=== PATIENT | male | born 1940 | race African-American/Black ===

== ENCOUNTER 2017-03-20 09:39 | Outpatient (CLI) | payer MEDICARE, BC ==
[2017-03-20 11:48] LABS: #Eosinphils 0.2 thou/uL (0.0-0.7); #Monocytes 0.6 thou/uL (0.11-0.59); #Neutrophils 3.3 thou/uL (1.40-6.50); %Basophils 0.5 % (0.0-1.0); %Eosinophils 3.7 % (0.0-10.0); %Lymphocytes 20.3 % (21.0-51.0); %Monocytes 10.7 % (0.0-10.0); Hematocrit 42.5 % (42.0-52.0); Mean Platelet Volume 8.1 fL (7.4-10.4); Red Blood Cell (RBC) Count 4.56 mill/uL (4.70-6.10); White Blood Cell (WBC) Count 5.1 thou/uL (4.8-10.8)
[2017-03-20 11:59] LABS: ALT (SGPT) 14 U/L (8-55); AST (SGOT) 15 U/L (5-34); Alkaline Phosphatase 62 U/L (40-150); Anion Gap 11 mmol/L (10-20); BUN (Urea Nitrogen) 18 mg/dL (8.4-25.7); Bilirubin, Direct 0.3 mg/dL (0.1-0.3); Bilirubin, Total 0.8 mg/dL (0.2-1.2); Calc. Creatinine Clearance 0 mL/min (70-130); Calcium 9.5 mg/dL (7.8-10.44); Carbon Dioxide 30 mmol/L (23-31); Chloride 106 mmol/L (98-107); Estimated GFR-MDRD 57; Globulin 2.8 g/dL (2.4-3.5); Protein, Total 6.9 g/dL (5.8-8.1)
--- NOTE | 2017-03-20 15:11 | EKG ---
Test Reason : Blood Pressure : / mmHG Vent. Rate : 053 BPM Atrial Rate : 053 BPM P-R Int : 180 ms QRS Dur : 096 ms QT Int : 454 ms P-R-T Axes : 058 069 050 degrees QTc Int : 426 ms Sinus bradycardia Moderate voltage criteria for LVH, may be normal variant Borderline ECG Confirmed by KG MARR ([id number]) on 03/20/2017 3:10:52 PM Referred By: RADHA Confirmed By:KG MARR
== END 2017-03-20 09:40 | disposition home or self-care (01) ==
LOC: LABBT 09:39
PROVIDERS: ATTEND Surgery
DX: Z01.818 Encounter for other preprocedural examination (principal); K80.20 Calculus of gallbladder without cholecystitis without obstruction
CPT/HCPCS: 80053; 80076; 85025; 93005; 93010

== ENCOUNTER 2017-03-22 09:05 | Day surgery (SDC) | payer MEDICARE, BC ==
[2017-03-20 10:10] VITALS: BMI 29.0
[2017-03-22] MEDS ORDERED: Sodium Chloride 0.9% 100 ML ONE (09:43)
[2017-03-22] MEDS ORDERED: Hydrocortisone Sod Succ/PF 100 mg/2 ml Vial ONE (10:06)
[2017-03-22] MEDS ORDERED: Fentanyl 100 MCG/2 ML VIAL ONE (10:32)
[2017-03-22] MEDS ORDERED: Propofol 200 MG/20 ML VIAL ONE (10:45)
[2017-03-22] MEDS ORDERED: Lidocaine 1% PF 5 ML VIAL ONE (10:45)
[2017-03-22] MEDS ORDERED: Metoclopramide HCl 10 MG/2 ML VIAL ONE (10:45)
[2017-03-22] MEDS ORDERED: Ketorolac Tromethamine 30 MG/ML VIAL ONE (10:45)
[2017-03-22] MEDS ORDERED: Dexamethasone 20 MG/5 ML VIAL ONE (10:45)
[2017-03-22] MEDS ORDERED: diphenhydrAMINE HCl 50 MG/ML 1 ML VIAL ONE (10:45)
[2017-03-22] MEDS ORDERED: Ondansetron HCl/PF 4 MG/2 ML Vial ONE (10:45)
[2017-03-22] MEDS ORDERED: Glycopyrrolate 0.2 MG/ML 5 ML SYRINGE ONE (10:45)
[2017-03-22] MEDS ORDERED: HYDROcodone/Acetaminophen 5/325 mg Tablet ONE (13:31)
--- NOTE | 2017-03-22 13:56 | OP ---
DATE OF PROCEDURE: 03/22/2017 PREOPERATIVE DIAGNOSIS: Symptomatic cholelithiasis. SURGEON: Shar Pelaez M.D. PROCEDURE PERFORMED: Laparoscopic cholecystectomy. INDICATIONS: This is a 76-year-old male who has been having episodic right upper quadrant pain radi ating to the back associated with nausea. Ultrasound showed cholelithiasis. FINDINGS: Small caliber cystic duct. PROCEDURE: After informed consent was obtained, the patient was taken to the operating room and giv en general endotracheal anesthesia. He was placed in the supine position. The abdomen prepped and draped in the usual fashion. Local anesthesia infiltrated subcutaneously and deep. A periumbilical incision was performed. The subcu divided sharply. Fascia grasped and two stay sutures of 0 Vicry l placed to either side of midline. Midline incised. Digital palpation revealed no local adhesions . A blunt 10/12 mm trocar inserted. Pneumoperitoneum was created to a pressure of 15 mmHg. A 0 d egree laparoscope inserted. Three 5 mm ports placed subcostally. The gallbladder grasped advanced superiorly peritoneum lysed to reveal the cystic duct and artery as well as the critical view. Thes e were triply ligated with Hemoclips and divided. The gallbladder was removed from its fossa utiliz ing electrocautery, removed from the abdomen through the umbilical port. Hemostasis was assured. T rocars and retractors were removed. The fascia closed with interrupted 0 Vicryl suture. Skin close d with interrupted 4-0 Rapide. Dermabond applied. The patient tolerated the procedure well and tra nsferred to recovery in good condition. Sponge and needle count verified correct x2.
== END 2017-03-22 14:10 | disposition home or self-care (01) ==
LOC: SDC 09:05
PROVIDERS: ATTEND Surgery
PROC: 0FT44ZZ Resection of Gallbladder, Percutaneous Endoscopic Approach (ICD-10-PCS; principal; 2017-03-22)
DX: K80.10 Calculus of gallbladder with chronic cholecystitis without obstruction (principal); M06.9 Rheumatoid arthritis, unspecified; M32.9 Systemic lupus erythematosus, unspecified; Z90.79 Acquired absence of other genital organ(s); N18.2 Chronic kidney disease, stage 2 (mild); I12.9 Hypertensive chronic kidney disease with stage 1 through stage 4 chronic kidney disease, or unspecified chronic kidney disease; E11.22 Type 2 diabetes mellitus with diabetic chronic kidney disease; Z79.84 Long term (current) use of oral hypoglycemic drugs; Z79.52 Long term (current) use of systemic steroids; Z79.899 Other long term (current) drug therapy; Z90.89 Acquired absence of other organs; Z98.890 Other specified postprocedural states; Z87.891 Personal history of nicotine dependence
CPT/HCPCS: 88304; J0131; J0694; J1100; J1200; J1720; J1885; J2001; J2405; J2704; J2765; J3010; J7050

== ENCOUNTER 2018-08-08 09:42 | Emergency (ER) | payer MEDICARE, BC ==
[2018-08-08 11:04] LABS: #Lymphocytes 0.8 thou/uL (1.20-3.40); #Monocytes 0.5 thou/uL (0.11-0.59); #Neutrophils 6.2 thou/uL (1.40-6.50); %Basophils 0.1 % (0.0-1.0); %Eosinophils 0.7 % (0.0-10.0); %Lymphocytes 10.7 % (21.0-51.0); %Monocytes 6.7 % (0.0-10.0); %Neutrophils 81.9 % (42.0-75.0); Hemoglobin 12.1 g/dL (14.0-18.0); Mean Corpuscular HGB CONC 33.2 g/dL (32.0-36.0); Mean Corpuscular Volume 90.5 fL (78.0-98.0); Mean Platelet Volume 8.4 fL (7.4-10.4); Platelet Count 177 thou/uL (130-400); RBC Distribution Width 13.2 % (11.5-14.5); Red Blood Cell (RBC) Count 4.03 mill/uL (4.70-6.10); White Blood Cell (WBC) Count 7.6 thou/uL (4.8-10.8)
[2018-08-08] MEDS ORDERED: Amlodipine 5 MG TAB ONE ×2 (11:21→12:04)
[2018-08-08 11:24] LABS: ALT (SGPT) 16 U/L (8-55); AST (SGOT) 18 U/L (5-34); Alkaline Phosphatase 56 U/L (40-150); Anion Gap 11 mmol/L (10-20); BUN (Urea Nitrogen) 20 mg/dL (8.4-25.7); Bilirubin, Total 0.9 mg/dL (0.2-1.2); Calc. Creatinine Clearance 0 mL/min (70-130); Calcium 9.7 mg/dL (7.8-10.44); Carbon Dioxide 28 mmol/L (23-31); Chloride 108 mmol/L (98-107); Estimated GFR-MDRD 50; Globulin 2.4 g/dL (2.4-3.5); Glucose 74 mg/dL (83-110); Lipase 25 U/L (8-78); Potassium 4.2 mmol/L (3.5-5.1); Protein, Total 6.4 g/dL (5.8-8.1); Sodium 143 mmol/L (136-145)
--- NOTE | 2018-08-11 21:00 | EKG ---
Test Reason : Blood Pressure : / mmHG Vent. Rate : 051 BPM Atrial Rate : 051 BPM P-R Int : 172 ms QRS Dur : 088 ms QT Int : 452 ms P-R-T Axes : 063 069 077 degrees QTc Int : 416 ms Sinus bradycardia Minimal voltage criteria for LVH, may be normal variant Borderline ECG Confirmed by MANUELITO JUNG, DOYLE Judd ([id number]), technical writer and editor NICOLAS ELKINS ([id number]) on 08/11/2018 9:00:23 PM Referred By: Confirmed By:DOYLE BILLINGS MD
== END 2018-08-08 12:42 | disposition home or self-care (01) ==
LOC: ERS 09:42
DX: I10 Essential (primary) hypertension (principal); E11.9 Type 2 diabetes mellitus without complications; M06.9 Rheumatoid arthritis, unspecified; E78.5 Hyperlipidemia, unspecified; J45.909 Unspecified asthma, uncomplicated; Z87.01 Personal history of pneumonia (recurrent); Z79.899 Other long term (current) drug therapy; Z79.82 Long term (current) use of aspirin
CPT/HCPCS: 36415; 80053; 83690; 84484; 85025; 93005

== ENCOUNTER 2020-03-31 10:23 | Outpatient (CLI) | payer MEDICARE ==
--- NOTE | 2020-03-31 11:43 | CT ---
EXAM: CT Abdomen Pelvis W Con PROVIDED CLINICAL HISTORY: Early satiety, weight loss COMPARISON: 07/15/2014 FINDINGS: Bilateral pleural-based calcification with loculated left pleural fluid redemonstrated. The liver, spleen, pancreas, kidneys and adrenal glands demonstrate an unremarkable CT appearance of the exception of several subcentimeter renal hypodensities that are statistically cysts. Changes of prior cholecystectomy are seen. There is no bowel dilatation, inflammatory fat stranding, free fluid or lymph node enlargement apparent. No evidence for appendicitis. Diffuse increased density within the appendix may reflect appendicolith. Atherosclerotic vascular calcifications are demonstrated. The osseous structures demonstrate no concerning lytic or blastic lesions. Ankylosis of both sacroili ac joints. IMPRESSION: No evidence for an acute process.
== END 2020-03-31 10:24 | disposition home or self-care (01) ==
LOC: BICCT 10:23
PROVIDERS: ATTEND Physician Assistant Medical
DX: I71.4 Abdominal aortic aneurysm, without rupture (principal); E11.9 Type 2 diabetes mellitus without complications; R68.81 Early satiety; R63.4 Abnormal weight loss
CPT/HCPCS: 74177

== ENCOUNTER 2022-02-22 09:16 | Outpatient (CLI) | payer MEDICARE, BC | END 2022-02-22 09:17 | disposition home or self-care (01) | LOC: LABBT 09:16 | PROVIDERS: ATTEND Physician Assistant | DX: R13.12 Dysphagia, oropharyngeal phase (principal); R63.39 Other feeding difficulties; Z20.822 Contact with and (suspected) exposure to COVID-19 | CPT/HCPCS: 87811 ==

== ENCOUNTER 2022-02-24 12:56 | Outpatient (CLI) | payer MEDICARE, OTHER | END 2022-02-24 12:57 | disposition home or self-care (01) | LOC: RAD 12:56 | PROVIDERS: ATTEND Physician Assistant | DX: R13.12 Dysphagia, oropharyngeal phase (principal); R63.39 Other feeding difficulties; K21.9 Gastro-esophageal reflux disease without esophagitis; K22.89 Other specified disease of esophagus | CPT/HCPCS: 74220; 74230 ==

== ENCOUNTER 2025-05-27 08:15 | Outpatient (CLI) | payer MEDICARE ==
[2025-05-27] MEDS ORDERED: Barium Sulfate 96% 176 GM BOT (xray ONLY) ONE (09:05)
[2025-05-27] MEDS ORDERED: E-Z-HD 98% W/W 340GM BOT (x-ray ONLY) ONE (09:05)
== END 2025-05-27 08:16 | disposition home or self-care (01) ==
LOC: RAD 08:15
PROVIDERS: ATTEND Physician Assistant Medical
DX: K21.9 Gastro-esophageal reflux disease without esophagitis (principal); R13.10 Dysphagia, unspecified; J98.4 Other disorders of lung; K22.2 Esophageal obstruction
CPT/HCPCS: 74220